=== PATIENT | female | born 1960 | race Caucasian/White ===

== ENCOUNTER 2018-06-30 05:45 | Day surgery (SDC) | payer OTHER ==
[2018-06-30] MEDS ORDERED: MIDAZOLAM 1 MG/ML 2 ML INJ (08:16)
[2018-06-30] MEDS ORDERED: FENTAnyl 50 MCG/ML VIAL (08:16)
== END 2018-06-30 11:43 | disposition home or self-care (01) ==
LOC: GIL 05:45
DX: Z12.11 Encounter for screening for malignant neoplasm of colon (principal); K64.1 Second degree hemorrhoids; K57.30 Diverticulosis of large intestine without perforation or abscess without bleeding
CPT/HCPCS: 45378